=== PATIENT | male | born 1960 | race Caucasian/White ===

== ENCOUNTER 2018-10-06 19:08 | Inpatient (IN) | payer SELFPAY ==
[~2018-10-06] VITALS: Ht 167.6 cm; Wt 81.6 kg
[2018-10-06] MEDS ORDERED: ASPIRIN 81MG TABLET PO ONE (20:00)
[2018-10-06 20:51] LABS: BASOPHILS % 0.3 % (0.0-2.0); EOSINOPHILS % 3.3 % (0.0-5.0); HEMATOCRIT. 44.4 % (42.0-52.0); HEMOGLOBIN. 15.1 g/dL (14.0-18.0); LYMPHOCYTES % 43.1 % (20.0-50.0); MEAN CORPUSCULAR HEMOGLOBIN 30.9 pg (28.0-32.0); MEAN CORPUSCULAR VOLUME 90.8 fL (80.0-94.0); MEAN PLATELET VOLUME 8.7 fl (7.4-10.4); MONOCYTES % 6.7 % (2.0-8.0); NEUTROPHILS % 46.6 % (40.0-76.0); PLATELET 197 x1000/uL (130-400); RED BLOOD CELL COUNT 4.89 mill/uL (4.7-6.1); RED CELL DISTRIBUTION WIDTH 12.9 % (11.6-14.6)
[2018-10-06 20:57] LABS: CHLORIDE 108 mEq/L (98-107)
[2018-10-06] MEDS ORDERED: NITROGLYCERIN 0.4MG TABLET SL SL ONE (21:15)
[2018-10-06 23:37] LABS: BG BASE EXCESS 1.5 mmol/L (-2.0-2.0); BG CARBOXYHEMOGLOBIN 0.6 % (0.5-1.5); BG DEOXYHEMOGLOBIN 4.3 % (0.0-5.0); BG FRACTION INSPIRED OXYGEN 21; BG HCO3 ACT 26.3 mmol/L (22.0-26.0); BG METHEMOGLOBIN 0.1 % (0.0-1.5); BG OXYGEN SATURATION 95.7 % (92.0-98.5); BG PCO2 42.1 mmHg (35.0-45.0); BG PH 7.414 (7.350-7.450); BG PO2 76.7 mmHg (75.0-100.0); BG SAMPLE SITE LEFT RADIAL; BG TOTAL HEMOGLOBIN 15.8 g/dL (12.0-18.0); BG VENT MODE RA
[2018-10-07 00:08] LABS: *AMPHETAMINES SCREEN URINE NEGATIVE (NEGATIVE); CANNABINOID URINE SCREEN NEGATIVE (NEGATIVE)
[2018-10-07 00:09] LABS: *BARBITURATES SCREEN URINE NEGATIVE (NEGATIVE); *BENZODIAZEPINES SCREEN URINE PRESUMTIVE POSITIVE (NEGATIVE); *COCAINE SCREEN URINE NEGATIVE (NEGATIVE); METHADONE URINE SCREEN NEGATIVE (NEGATIVE); OPIATES URINE SCREEN NEGATIVE (NEGATIVE)
[2018-10-07 00:10] LABS: PHENCYCLIDINE URINE SCREEN NEGATIVE (NEGATIVE)
[2018-10-07 04:00] VITALS: BP 153/79
[2018-10-07 05:00] VITALS: BP 155/70
[2018-10-07] MEDS ORDERED: ONDANSETRON HCL 4MG/2ML INJ IV PRN (05:18)
[2018-10-07] MEDS ORDERED: LORAZEPAM 2MG/ML CPJ IV PRN (05:18)
[2018-10-07] MEDS: DEXT 5%/0.45% NACL 1000ML 1,000 ML IV SCH ×2 (06:30→18:37)
[2018-10-07 08:00] VITALS: BP 150/80
[2018-10-07 08:41] LABS: BG CARBOXYHEMOGLOBIN 1.1 % (0.5-1.5); BG DEOXYHEMOGLOBIN 4.7 % (0.0-5.0); BG FRACTION INSPIRED OXYGEN 21; BG HCO3 ACT 26.2 mmol/L (22.0-26.0); BG METHEMOGLOBIN 0.3 % (0.0-1.5); BG OXYGEN SATURATION 95.2 % (92.0-98.5); BG OXYHEMOGLOBIN 93.9 % (94.0-97.0); BG PCO2 43.5 mmHg (35.0-45.0); BG PH 7.397 (7.350-7.450); BG PO2 75.1 mmHg (75.0-100.0); BG SAMPLE SITE RIGHT BRACHIAL; BG VENT MODE ROOM AIR
[2018-10-07] MEDS: ENOXAPARIN 40MG/0.4ML SYR SUBCUT SCH (08:55)
[2018-10-07 11:46] VITALS: BP 147/79
[2018-10-07] MEDS: LISINOPRIL 5MG TABLET PO SCH ×2 (12:08→21:00)
[2018-10-07 13:19] LABS: BASOPHILS % 1.3 % (0.0-2.0); EOSINOPHILS % 3.2 % (0.0-5.0); HEMATOCRIT. 42.5 % (42.0-52.0); HEMOGLOBIN. 14.7 g/dL (14.0-18.0); LYMPHOCYTES % 37.1 % (20.0-50.0); MEAN CORPUSCULAR HEMOGLOBIN 31.2 pg (28.0-32.0); MEAN CORPUSCULAR VOLUME 90.4 fL (80.0-94.0); MONOCYTES % 5.6 % (2.0-8.0); NEUTROPHILS % 52.8 % (40.0-76.0); PLATELET 195 x1000/uL (130-400); RED CELL DISTRIBUTION WIDTH 13.1 % (11.6-14.6)
[2018-10-07 14:57] LABS: CHLORIDE 108 mEq/L (98-107)
[2018-10-07 15:06] LABS: CREATINE KINASE 133 IU/L (39-308); LDL CHOLESTEROL 170 mg/dL (5-100)
[2018-10-07 15:07] LABS: HDL CHOLESTEROL 33 mg/dL (40-59)
[2018-10-07 15:09] LABS: CREATINE KINASE MB FRACTION < 1.0 ng/mL (0.5-3.6)
[2018-10-07 16:06] VITALS: BP 129/79
[2018-10-07 20:15] VITALS: BP 124/70
[2018-10-07] MEDS ORDERED: ATORVASTATIN CALCIUM 20MG TABLET PO SCH (21:00)
[2018-10-08] VITALS: BP 133/74
[2018-10-08] MEDS: DEXT 5%/0.45% NACL 1000ML 1,000 ML IV SCH
[2018-10-08 04:00] VITALS: BP 121/68
[2018-10-08 06:54] LABS: EOSINOPHILS % 3.8 % (0.0-5.0); HEMATOCRIT. 43.4 % (42.0-52.0); HEMOGLOBIN. 14.9 g/dL (14.0-18.0); LYMPHOCYTES % 36.3 % (20.0-50.0); MEAN CORPUSCULAR HEMOGLOBIN 31.1 pg (28.0-32.0); MEAN CORPUSCULAR VOLUME 90.8 fL (80.0-94.0); MEAN PLATELET VOLUME 9.1 fl (7.4-10.4); MONOCYTES % 6.1 % (2.0-8.0); NEUTROPHILS % 52.8 % (40.0-76.0); PLATELET 188 x1000/uL (130-400); RED BLOOD CELL COUNT 4.78 mill/uL (4.7-6.1); RED CELL DISTRIBUTION WIDTH 12.7 % (11.6-14.6)
[2018-10-08 07:15] LABS: CHLORIDE 110 mEq/L (98-107)
[2018-10-08 07:50] VITALS: BP_SYST 109; BP_SYST 120; BP_DIAS 70
[2018-10-08] MEDS: LISINOPRIL 5MG TABLET PO SCH (08:20)
[2018-10-08] MEDS: ENOXAPARIN 40MG/0.4ML SYR SUBCUT SCH (08:22)
[2018-10-08 10:00] VITALS: BP 110/64
[2018-10-08 11:38] VITALS: BP 150/73
[2018-10-08] MEDS ORDERED: ATOR20TA PO (12:50)
[2018-10-08] MEDS ORDERED: LISI-186 PO (12:50)
== END 2018-10-08 14:10 | disposition home or self-care (01) | DRG 201 ==
LOC: ER 19:08 → SUPCPDRO 22:53 → UNDOADMIN 23:59 → 6WST 23:59 → EDBEDREQTM 10-07 00:09 → EDBEDREQ 10-07 00:09 → ENRESERV 10-07 04:00
PROVIDERS: ADMIT Internal Medicine; ATTEND Internal Medicine
DX: R00.1 Bradycardia, unspecified (principal); I27.20 Pulmonary hypertension, unspecified; I11.9 Hypertensive heart disease without heart failure; R07.89 Other chest pain; E78.00 Pure hypercholesterolemia, unspecified; E78.5 Hyperlipidemia, unspecified; F17.210 Nicotine dependence, cigarettes, uncomplicated; Z91.041 Radiographic dye allergy status; Z79.899 Other long term (current) drug therapy
CPT/HCPCS: 36415; 36600; 71045; 80048; 80061; 80305; 82375; 82550; 82553; 82805; 83036; 83880; 84443; 84484; 93005; 93306; 93970; 99285; J1650